=== PATIENT | female | born 1960 | race Caucasian/White ===

== ENCOUNTER → 2018-01-13 | Outpatient (CLI) | payer BC ==
[~2018-01-13] MED LIST: NORMODYNE100 MG PO; VASOTEC 10M10 MG/TAB PO
== END ==
LOC: MC.RAD 07:39
DX: Z12.31 Encounter for screening mammogram for malignant neoplasm of breast (principal)

== ENCOUNTER → 2018-04-08 | Outpatient (CLI) | payer BC | LOC: COL.VAS 08:20 | DX: I10 Essential (primary) hypertension (principal); R06.01 Orthopnea ==

== ENCOUNTER → 2018-05-27 | Outpatient (CLI) | payer BC | LOC: COL.PUL 09:39 | DX: R06.02 Shortness of breath (principal); Z87.891 Personal history of nicotine dependence | CPT/HCPCS: J7674 ==

== ENCOUNTER → 2018-05-30 | Outpatient (CLI) | payer BC | LOC: COL.RAD 08:34 | DX: M79.645 Pain in left finger(s) (principal); M79.644 Pain in right finger(s) | CPT/HCPCS: J3301; Q9967 ==

== ENCOUNTER → 2019-02-27 | Outpatient (CLI) | payer BC | LOC: MC.RAD 09:42 | DX: Z12.31 Encounter for screening mammogram for malignant neoplasm of breast (principal) ==

== ENCOUNTER 2019-07-06 10:39 | Day surgery (SDC) | payer BC ==
[~2019-07-06] VITALS: Ht 162.6 cm; Wt 90.4 kg
[2019-07-06 11:48] VITALS: BP 179/81; PULSE 67; TEMP 98.1
[2019-07-06] MEDS ORDERED: NORMODYNE100 MG PO (12:00)
[2019-07-06] MEDS ORDERED: PRIL40 PO (12:01)
[2019-07-06] MEDS ORDERED: DITROPAN 5MG TAB5 MG PO (12:02)
[2019-07-06] MEDS ORDERED: ALEVE 220MG220 MG PO (12:03)
[2019-07-06] MEDS ORDERED: MULTIPLE VITAMI1 CAP PO (12:03)
[2019-07-06 13:38] VITALS: TEMP 98.1
[2019-07-06 13:50] VITALS: BP 146/63; PULSE 83
--- NOTE | 2019-07-06 13:50 | NUR ---
Patient returns to room 2 per cart and is awake and alert. IV fluids infusing right hand and site is free of redness. Temp 97.8 and room air sats 100%. Denies pain or nausea. Taking sips of water. Complains of being cold and warm blankets applied. Family in room.
[2019-07-06 14:05] VITALS: BP 133/64; PULSE 56
--- NOTE | 2019-07-06 14:05 | NUR ---
Talking with family. Offers no complaints of pain or nausea.
--- NOTE | 2019-07-06 14:15 | NUR ---
Up to the bathroom and is able to void pink tinged urine. Tolerates ambulation well.
[2019-07-06 14:30] VITALS: BP 181/73; PULSE 71
--- NOTE | 2019-07-06 14:30 | NUR ---
Sitting up on the edge of the cart and is eating muffin and drinking water. Denies pain or nausea. Son in room and talking with the patient.
--- NOTE | 2019-07-06 14:40 | NUR ---
IV discontinued and site is free of redness or swelling. Patient is able to dress self.
--- NOTE | 2019-07-06 14:51 | NUR ---
Dismissal instructions given and voices understanding of home cares and follow up as scheduled. Provided office number for questions and concerns. Instructed to force fluids.
--- NOTE | 2019-07-06 14:58 | NUR ---
Patient dismissed to home per private vehicle driven by son and taken to the front door per wheelchair and assisted into vehicle by this RN with dismissal instructions in hand.
== END 2019-07-06 14:58 | disposition home or self-care (01) ==
LOC: SDCO 10:39
DX: N20.1 Calculus of ureter (principal); R35.1 Nocturia; I10 Essential (primary) hypertension; E78.5 Hyperlipidemia, unspecified; E78.00 Pure hypercholesterolemia, unspecified; Z79.899 Other long term (current) drug therapy; Z82.49 Family history of ischemic heart disease and other diseases of the circulatory system; Z86.718 Personal history of other venous thrombosis and embolism
CPT/HCPCS: C1769; C2617; J0690; J1100; J2405; J2704; J3010; J7120

== ENCOUNTER → 2020-03-01 | Outpatient (CLI) | payer BC ==
[~2020-03-01] MED LIST changes: +ALEVE 220MG220 MG PO; +AMOXICILLIN 8751 TAB PO; +ATIVAN 0.50.5 MG/TAB PO; +DITROPAN 5MG TAB5 MG PO; +IPRATROPIUM BROM3 M1 IH; +MULTIPLE VITAMI1 CAP PO; +NORCO 325 MG-51 TAB PO; +PRIL40 PO; +TYLENOL 500MG500 MG PO; +ZOLOFT 50MG50 MG PO
== END ==
LOC: MC.RAD 07:46
DX: Z12.31 Encounter for screening mammogram for malignant neoplasm of breast (principal)

== ENCOUNTER → 2020-06-12 | Outpatient (CLI) | payer BC ==
[~2020-06-12] MED LIST changes: +ALDACTONE50 MG PO; +DIFLUCAN150 MG PO; +HYGROTON 2525 MG/TAB PO; +INDOCIN50 MG PO; +MACROBID 1100 MG/CAP PO; -MULTIPLE VITAMI1 CAP PO; +MULTIPLE VITAMI1 TA5 PO; +NORCO 325 MG-7.1 TAB PO; +PRINIVIL20 MG PO; +ROXICODONE 55 MG/TAB PO; +SENOKOT S 50 MG1 TAB PO; +XARELTO10 MG PO; +ZOFRAN 4MG T4 MG/TAB PO
== END ==
LOC: COL.LAB 08:00
DX: Z20.828 Contact with and (suspected) exposure to other viral communicable diseases (principal)

== ENCOUNTER 2020-10-02 14:32 | Inpatient (IN) | payer BC ==
[~2020-10-02] VITALS: Ht 167.6 cm; Wt 110.4 kg
[2020-12-17] VITALS (10 sets, daily range): BP systolic 104–165; BP diastolic 52–78; PULSE 59–88; TEMP 97.4–974
[2020-12-17] MEDS ORDERED: ALEVE 220MG220 MG PO (06:58)
[2020-12-18 00:10] VITALS: BP 149/72; PULSE 78; TEMP 97.3
[2020-12-18 04:53] VITALS: BP 170/75; PULSE 73; TEMP 97.6
[2020-12-18 07:13] LABS: HEMATOCRIT 39.5 % (37.0-47.0); HEMOGLOBIN 12.5 g/dl (12.5-16.0)
[2020-12-18 07:55] VITALS: BP 171/86; PULSE 78; TEMP 98
[2020-12-18 11:55] VITALS: BP 137/49; PULSE 73; TEMP 97.3
[2020-12-18 16:00] VITALS: BP 116/56; PULSE 77; TEMP 98.3
[2020-12-18 21:07] VITALS: BP 128/59; PULSE 76; TEMP 98.5
[2020-12-19 00:28] VITALS: BP 111/63; PULSE 78; TEMP 98.2
[2020-12-19 03:21] VITALS: BP 104/43; PULSE 74; TEMP 98.2
[2020-12-19 07:34] VITALS: BP 109/62; PULSE 75; TEMP 98.7
[2020-12-19 11:14] VITALS: BP 113/52; PULSE 78; TEMP 98.7
[2020-12-19] MEDS ORDERED: NORCO 325 MG-7.1 TAB PO (14:20)
[2020-12-19] MEDS ORDERED: SENOKOT S 50 MG1 TAB PO (14:21)
[2020-12-19] MEDS ORDERED: ROXICODONE 55 MG/TAB PO (14:21)
[2020-12-19] MEDS ORDERED: ZOFRAN 4MG T4 MG/TAB PO (14:24)
== END 2020-12-19 15:15 | disposition home or self-care (01) | DRG 470 ==
LOC: INPTSU 12-17 05:41 → SDCO 12-17 07:30 → SURG 12-17 07:30 → EDSTATUS 12-17 07:30 → INPTSU 12-17 10:10 → SURG 12-17 10:10
PROVIDERS: ADMIT Orthopaedic Surgery
PROC: 0SRD069 Replacement of Left Knee Joint with Oxidized Zirconium on Polyethylene Synthetic Substitute, Cemented, Open Approach (ICD-10-PCS; principal; 2020-12-17 07:30)
DX: M17.12 Unilateral primary osteoarthritis, left knee (principal); I10 Essential (primary) hypertension; Z20.822 Contact with and (suspected) exposure to COVID-19
CPT/HCPCS: A9284; C1713; C1776; J0690; J2250; J2405; J2704; J3010; J7030; J7120

== ENCOUNTER → 2021-09-25 | Outpatient (CLI) | payer BC | LOC: MC.RAD 08:28 | DX: Z12.31 Encounter for screening mammogram for malignant neoplasm of breast (principal) ==

== ENCOUNTER → 2023-10-14 | Outpatient (CLI) | payer MEDICARE, BC | LOC: MC.RAD 10:40 | DX: Z12.31 Encounter for screening mammogram for malignant neoplasm of breast (principal) ==